=== PATIENT | female | born 1995 ===

== ENCOUNTER 2019-08-23 17:20 | Emergency (ER) | payer OTHER ==
[~2019-08-23] VITALS: Ht 157.5 cm; Wt 66.2 kg
[~2019-08-23 17:20] MED LIST: CEFADROXIL1 G; CIPRO500 MG PO; PYRIDIUM DS200 MG PO; PYRIDIUM100 MG; TAMS0.4C PO; TERCONAZOLE45 GM VG; TRAMADOL HCL-AP1 TAB PO
== END 2019-08-23 21:20 | disposition home or self-care (01) ==
LOC: ER 17:20
DX: N93.8 Other specified abnormal uterine and vaginal bleeding (principal); D25.9 Leiomyoma of uterus, unspecified